=== PATIENT | female | born 1965 | race Caucasian/White ===

== ENCOUNTER 2018-07-11 15:26 | Inpatient (IN) | payer OTHER ==
[~2018-07-11] VITALS: Ht 167.6 cm; Wt 93.3 kg
[~2018-07-11 15:26] MED LIST: ALBU90I INH; AMLO5 PO; ATEN100; ATEN100 PO; ATOR20 PO; BENA20; BENA20 PO; CIME300; CIME300 PO; CIME400 PO; CLAR500 PO; CLIN300 PO; CYCL10 PO; EPIN.3I IM; HYDACE5 PO; ISOD40ER; ISOMON60ER PO; LISI20 PO; METR500 PO; NAPR500 PO; NITR.4SL SL; OMEP20ER PO; OMEPRAZOLE MAGN20 MG PO; PRED20 PO; QUIN325; SULTRIDS PO; VICODIN 5-3001 EACH PO; ZESTRIL40 MG PO
[2018-07-11 16:09] LABS: BASOPHILS ABSOLUTE AUTO 0.04 K/mm3 (0.00-0.23); BASOPHILS PERCENT AUTO 0 % (0-2); EOSINOPHILS PERCENT AUTO 0 % (0-6); Hematocrit 42.8 % (33.0-51.0); Hemoglobin 14.8 g/dL (11.5-16.0); IMMATURE GRAN ABSOLUTE AUTO 0.12 K/mm3 (0.00-0.10); IMMATURE GRAN PERCENT AUTO 1 % (0-1); LYMPHOCYTES ABSOLUTE AUTO 0.43 K/mm3 (0.84-5.20); LYMPHOCYTES PERCENT AUTO 2 % (21-46); MONOCYTES ABSOLUTE AUTO 0.61 K/mm3 (0.16-1.47); MONOCYTES PERCENT AUTO 3 % (4-13); Mean Corpuscular HGB 33.9 pg (26.0-34.0); Mean Corpuscular HGB Conc 34.6 g/dL (31.5-36.5); Mean Corpuscular Volume 98 fL (80-100); Mean Platelet Volume 9.6 fL (9.1-12.4); NEUTROPHILS ABSOLUTE AUTO 16.85 K/mm3 (1.96-9.15); NEUTROPHILS PERCENT AUTO 93 % (41-73); Platelet Count 254 K/mm3 (150-400); RDW Coefficient Variation 11.5 % (11.7-14.2); RDW Standard Deviation 42.1 fL (35.1-46.3); Red Blood Cell Count 4.36 M/mm3 (3.80-5.20); White Blood Cell Count 18.05 K/mm3 (4.00-11.30)
[2018-07-11 16:29] LABS: Alanine Aminotransfer (ALT/SGP 23 U/L (12-78); Albumin, Blood 3.8 g/dL (3.4-5.0); Albumin/Globulin Ratio 0.9 (0.8-1.8); Alk Phos 101 U/L (50-136); Anion Gap 8 mmol/L (6-16); Aspartate Aminotrans (AST/SGOT 14 U/L (12-37); Bilirubin, Total 0.8 mg/dL (0.1-1.0); Blood Urea Nitrogen 8 mg/dL (8-24); Bun/Creatinine Ratio 10.1 (12.0-20.0); CO2, Blood 26 mmol/L (21-32); Calcium, Blood 9.1 mg/dL (8.5-10.1); Chloride, Blood 95 mmol/L (98-108); Creatinine, Blood 0.79 mg/dL (0.40-1.00); Globulin, Blood 4.3 g/dL (2.2-4.0); Glomerular Filtration Rate >60 (60-); Glucose, Blood 128 mg/dL (70-99); Potassium, Blood 4.4 mmol/L (3.5-5.5); Sodium, Blood 129 mmol/L (136-145); Total Protein, Blood 8.1 g/dL (6.4-8.2)
[2018-07-11 17:26] LABS: Source, Urine Clean Catch
[2018-07-11 17:43] LABS: Appearance, Urine Clear (Clear); Bilirubin, Urine Neg (Neg); Blood, Urine Neg (Neg); Color, Urine Yellow (P-Yellow); Glucose Qualitative, Urine Neg (Neg); Ketones, Urine Neg (Neg); Leukocyte Esterase, Urine Neg (Neg); Nitrite, Urine Neg (Neg); Protein, Urine Neg (Neg); Specific Gravity, Urine 1.015 (1.003-1.022); Urobilinogen, Urine NORM (Normal)
--- NOTE | 2018-07-11 22:50 | NUR ---
PT GAVE CONSENT TO TAKE A PICTURE OF HER RIGHT LOWER LEG. REDNESS TO RIGHT LOWER EXTREMITY MARKED AND PICTURES TAKEN AND PLACED IN CHART.
--- NOTE | 2018-07-12 00:26 | NUR ---
07/11/18 2345 SECOND IV STARTED BY EMAIL DESIGNER, MARIAM, TO FACILITATE IV FLUIDS ORDERED. WILL MONITOR PAIN AND FEVER. CALL OSORIO WITHIN REACH.
[2018-07-12 04:59] LABS: Hemoglobin 11.8 g/dL (11.5-16.0); Mean Corpuscular HGB 33.5 pg (26.0-34.0); Mean Corpuscular HGB Conc 33.7 g/dL (31.5-36.5); Mean Corpuscular Volume 99 fL (80-100); Platelet Count 188 K/mm3 (150-400); RDW Coefficient Variation 11.9 % (11.7-14.2); RDW Standard Deviation 42.9 fL (35.1-46.3); Red Blood Cell Count 3.52 M/mm3 (3.80-5.20); White Blood Cell Count 10.61 K/mm3 (4.00-11.30)
[2018-07-12 05:24] LABS: Anion Gap 7 mmol/L (6-16); Blood Urea Nitrogen 8 mg/dL (8-24); Bun/Creatinine Ratio 9.9 (12.0-20.0); CO2, Blood 27 mmol/L (21-32); Calcium, Blood 7.9 mg/dL (8.5-10.1); Chloride, Blood 99 mmol/L (98-108); Creatinine, Blood 0.81 mg/dL (0.40-1.00); Glomerular Filtration Rate >60 (60-); Glucose, Blood 117 mg/dL (70-99); Potassium, Blood 3.7 mmol/L (3.5-5.5); Sodium, Blood 133 mmol/L (136-145)
--- NOTE | 2018-07-12 05:26 | NUR ---
07/12/18 0520 FEVER DOWN AND DENIES ANY PAIN AT PRESENT. CIWA AT 0. CPAP ON AT BEDTIME PER RESP CARE. CONTACT ISOLATION IN EFFECT UNTIL MRSA SWAB FROM [facility] REPORT RETURNS. UP VOIDING QS. RT LEG UNCHANGED FROM ADMIT.
--- NOTE | 2018-07-12 13:01 | NUR ---
This student nurse was given permission by the patient to access their medical information.
--- NOTE | 2018-07-12 18:42 | NUR ---
SHIFT SUMMARY. A&OX4, SBA TO BSC. RLE HOT TO TOUCH, PINK. PT CONTINUES TO BE FEBRILE, DR. CISNEROS ADDED IV ANCEF, TO BEGIN TONIGHT. FEVER AND PAIN TO RLE MANAGED WELL WITH APAP. NO SOB, N/V. PT REPORTS POOR APPETITE, BUT IS TAKING FLUIDS WELL. NO OTHER CHANGES.
[2018-07-13 04:58] LABS: BASOPHILS ABSOLUTE AUTO 0.04 K/mm3 (0.00-0.23); BASOPHILS PERCENT AUTO 0 % (0-2); EOSINOPHILS ABSOLUTE AUTO 0.01 K/mm3 (0.00-0.68); EOSINOPHILS PERCENT AUTO 0 % (0-6); Hematocrit 34.5 % (33.0-51.0); Hemoglobin 11.7 g/dL (11.5-16.0); IMMATURE GRAN ABSOLUTE AUTO 0.09 K/mm3 (0.00-0.10); IMMATURE GRAN PERCENT AUTO 1 % (0-1); LYMPHOCYTES ABSOLUTE AUTO 0.69 K/mm3 (0.84-5.20); LYMPHOCYTES PERCENT AUTO 6 % (21-46); MONOCYTES ABSOLUTE AUTO 0.38 K/mm3 (0.16-1.47); MONOCYTES PERCENT AUTO 3 % (4-13); Mean Corpuscular HGB 33.9 pg (26.0-34.0); Mean Corpuscular HGB Conc 33.9 g/dL (31.5-36.5); Mean Corpuscular Volume 100 fL (80-100); Mean Platelet Volume 9.7 fL (9.1-12.4); NEUTROPHILS ABSOLUTE AUTO 11.26 K/mm3 (1.96-9.15); NEUTROPHILS PERCENT AUTO 90 % (41-73); Platelet Count 172 K/mm3 (150-400); RDW Coefficient Variation 11.8 % (11.7-14.2); RDW Standard Deviation 43.2 fL (35.1-46.3); Red Blood Cell Count 3.45 M/mm3 (3.80-5.20); White Blood Cell Count 12.47 K/mm3 (4.00-11.30)
[2018-07-13 05:17] LABS: Anion Gap 9 mmol/L (6-16); Blood Urea Nitrogen 7 mg/dL (8-24); Bun/Creatinine Ratio 10.3 (12.0-20.0); CO2, Blood 24 mmol/L (21-32); Calcium, Blood 7.9 mg/dL (8.5-10.1); Chloride, Blood 100 mmol/L (98-108); Creatinine, Blood 0.68 mg/dL (0.40-1.00); Glomerular Filtration Rate >60 (60-); Glucose, Blood 130 mg/dL (70-99); Potassium, Blood 3.2 mmol/L (3.5-5.5); Sodium, Blood 133 mmol/L (136-145)
[2018-07-13 05:20] LABS: Vancomycin, Trough 9.4 ug/mL (5.0-10.0)
--- NOTE | 2018-07-13 07:19 | NUR ---
07/13/18 0630 BETTER NIGHT WITH NO PAIN AND LESS FEVERS. RT LEG WITH LESS REDNESS AND SWELLING. USES WALKER TO GET UP TO BSC HER RT LEG "CANNOT TOLERATE WEIGHT ON IT."
--- NOTE | 2018-07-13 18:21 | NUR ---
SHIFT SUMMARY PT HAS HAD NO COMPLAINTS THIS SHIFT. PT CONTINUES TO HAVE REDNESS, SWELLING, AND HOT TO TOUCH TO RLE. IVF INFUSING WITHOUT DIFFICULTY. PT WANTING TO GO HOME. NO SIGNS OF ETOH WITHDRAWAL NOTED THIS SHIFT. PT DID TAKE OWN MEDICATIONS THIS AM WHEN RN CAME IN TO DO AM MEDICATIONS. THIS RN EDUCATED PT ON IMPORTANCE AND SAFETY OF NOT TAKING OWN MEDICATIONS AND TAKING THE MEDICATIONS THAT THE PHSYICIAN HAS ORDERED. PT REPORTS UNDERSTANDING. NO ACUTE CHANGES THIS SHIFT. WILL CONTINUE TO MONITOR AND REPORT TO ONCOMING RN. CALL LIGHT IN REACH.
--- NOTE | 2018-07-14 05:02 | NUR ---
SHIFT SUMMARY: PT IS ALERT AND ORIENTED. PT IS CALM AND COOPERATIVE WITH CARE. PT CALLS APPROPRIATELY. PT IS INDEPENDENT IN THE ROOM. PT SLEPT MUCH OF THE NIGHT WHEN NOT DISTURBED. BANANA BAG RUNNING ORDERED. PT WORE CPAP OVERNIGHT. PT DENIES PAIN, NAUSEA, VOMITING, AND SOB. NO ACUTE CHANGES OR COMPLICATIONS THIS SHIFT. BED IN LOW POSITION, CALL LIGHT WITHIN REACH. WILL REPORT TO DAY NURSE.
[2018-07-14 05:21] LABS: BASOPHILS ABSOLUTE AUTO 0.04 K/mm3 (0.00-0.23); BASOPHILS PERCENT AUTO 1 % (0-2); EOSINOPHILS ABSOLUTE AUTO 0.08 K/mm3 (0.00-0.68); EOSINOPHILS PERCENT AUTO 1 % (0-6); Hematocrit 35.6 % (33.0-51.0); Hemoglobin 11.6 g/dL (11.5-16.0); IMMATURE GRAN ABSOLUTE AUTO 0.03 K/mm3 (0.00-0.10); IMMATURE GRAN PERCENT AUTO 0 % (0-1); LYMPHOCYTES ABSOLUTE AUTO 0.98 K/mm3 (0.84-5.20); LYMPHOCYTES PERCENT AUTO 13 % (21-46); MONOCYTES ABSOLUTE AUTO 0.54 K/mm3 (0.16-1.47); MONOCYTES PERCENT AUTO 7 % (4-13); Mean Corpuscular HGB 33.1 pg (26.0-34.0); Mean Corpuscular HGB Conc 32.6 g/dL (31.5-36.5); Mean Corpuscular Volume 102 fL (80-100); Mean Platelet Volume 9.8 fL (9.1-12.4); NEUTROPHILS PERCENT AUTO 79 % (41-73); Platelet Count 186 K/mm3 (150-400); RDW Coefficient Variation 11.9 % (11.7-14.2); RDW Standard Deviation 44.2 fL (35.1-46.3); White Blood Cell Count 7.87 K/mm3 (4.00-11.30)
--- NOTE | 2018-07-14 14:29 | NUR ---
Met with patient regarding POLST and advance directives. She has been offered those documents before and she has opted to NOT fill them out. She does not want to review them or interventions.
[2018-07-14 14:36] LABS: BASOPHILS ABSOLUTE AUTO 0.05 K/mm3 (0.00-0.23); BASOPHILS PERCENT AUTO 1 % (0-2); EOSINOPHILS ABSOLUTE AUTO 0.11 K/mm3 (0.00-0.68); EOSINOPHILS PERCENT AUTO 1 % (0-6); Hematocrit 35.8 % (33.0-51.0); Hemoglobin 11.8 g/dL (11.5-16.0); IMMATURE GRAN ABSOLUTE AUTO 0.04 K/mm3 (0.00-0.10); IMMATURE GRAN PERCENT AUTO 1 % (0-1); LYMPHOCYTES ABSOLUTE AUTO 0.78 K/mm3 (0.84-5.20); LYMPHOCYTES PERCENT AUTO 10 % (21-46); MONOCYTES ABSOLUTE AUTO 0.62 K/mm3 (0.16-1.47); MONOCYTES PERCENT AUTO 8 % (4-13); Mean Corpuscular HGB 33.3 pg (26.0-34.0); Mean Corpuscular Volume 101 fL (80-100); Mean Platelet Volume 9.4 fL (9.1-12.4); NEUTROPHILS ABSOLUTE AUTO 6.59 K/mm3 (1.96-9.15); NEUTROPHILS PERCENT AUTO 81 % (41-73); Platelet Count 207 K/mm3 (150-400); RDW Coefficient Variation 11.9 % (11.7-14.2); RDW Standard Deviation 44.6 fL (35.1-46.3); Red Blood Cell Count 3.54 M/mm3 (3.80-5.20); White Blood Cell Count 8.19 K/mm3 (4.00-11.30)
[2018-07-14 15:57] LABS: Vancomycin, Trough 20.5 ug/mL (5.0-10.0)
--- NOTE | 2018-07-14 19:11 | NUR ---
SHIFT SUMMARY PT HAD A TEMPERATURE THIS AFTERNOON AND TYLENOL GIVEN. TEMP DOWN TO 100.5. PT UP AND TOOK SHOWER THIS AFTERNOON. RLE CONTINUES TO BE RED AND WARM TO TOUCH. PT HAS HAD NO COMPLAINTS OR REQUESTS THIS SHIFT. NO ACUTE CHANGES. PT CONTINUES TO GET IV ANTIBIOTICS. REPORT GIVEN TO MARLY LOUIS. CALL LIGHT IN REACH.
[2018-07-15 04:57] LABS: BASOPHILS ABSOLUTE AUTO 0.05 K/mm3 (0.00-0.23); BASOPHILS PERCENT AUTO 1 % (0-2); EOSINOPHILS PERCENT AUTO 1 % (0-6); Hematocrit 33.8 % (33.0-51.0); Hemoglobin 11.3 g/dL (11.5-16.0); IMMATURE GRAN ABSOLUTE AUTO 0.05 K/mm3 (0.00-0.10); IMMATURE GRAN PERCENT AUTO 1 % (0-1); LYMPHOCYTES ABSOLUTE AUTO 0.87 K/mm3 (0.84-5.20); LYMPHOCYTES PERCENT AUTO 10 % (21-46); MONOCYTES ABSOLUTE AUTO 0.77 K/mm3 (0.16-1.47); MONOCYTES PERCENT AUTO 9 % (4-13); Mean Corpuscular HGB 32.7 pg (26.0-34.0); Mean Corpuscular HGB Conc 33.4 g/dL (31.5-36.5); Mean Corpuscular Volume 98 fL (80-100); Mean Platelet Volume 9.7 fL (9.1-12.4); NEUTROPHILS ABSOLUTE AUTO 6.62 K/mm3 (1.96-9.15); NEUTROPHILS PERCENT AUTO 78 % (41-73); Platelet Count 229 K/mm3 (150-400); RDW Coefficient Variation 11.9 % (11.7-14.2); RDW Standard Deviation 42.5 fL (35.1-46.3); Red Blood Cell Count 3.46 M/mm3 (3.80-5.20); White Blood Cell Count 8.46 K/mm3 (4.00-11.30)
--- NOTE | 2018-07-15 05:33 | NUR ---
SHIFT SUMMARY: PT IS ALERT AND ORIENTED. PT IS CALM AND COOPERATIVE WITH CARE. PT CALLS APPROPRIATELY. PT IS UP INDEPENDENTLY TO THE BSC. PT SLEPT MUCH OF THE NIGHT WHEN NOT DISTURBED. PT DENIES PAIN, NAUSEA, VOMITING, AND SOB. NO ACUTE CHANGES OR COMPLICATIONS THIS SHIFT. BED IN LOW POSITION, CALL LIGHT WITHIN REACH. WILL REPORT TO DAY NURSE.
--- NOTE | 2018-07-15 17:51 | NUR ---
SUMMARY PT SITTING UP IN BED, HAS BEEN PLEASANT AND COOPERATIVE WITH CARE T/O THE DAY, PT REPORTED REDNESS TO R LEG WORSE, AREA MARKED, DR MENDOSATRATE NOTIFIED, ANTIBIOTICS CHANGED, FAMILY HAS BEEN IN TO SEE THE PT, VSS, NO ACUTE CHANGES, WILL CONT TO MONITOR
[2018-07-15 20:16] LABS: Vancomycin, Trough 11.7 ug/mL (5.0-10.0)
[2018-07-16 05:01] LABS: BASOPHILS ABSOLUTE AUTO 0.06 K/mm3 (0.00-0.23); BASOPHILS PERCENT AUTO 1 % (0-2); EOSINOPHILS ABSOLUTE AUTO 0.19 K/mm3 (0.00-0.68); EOSINOPHILS PERCENT AUTO 2 % (0-6); Hematocrit 34.3 % (33.0-51.0); Hemoglobin 11.3 g/dL (11.5-16.0); IMMATURE GRAN ABSOLUTE AUTO 0.05 K/mm3 (0.00-0.10); IMMATURE GRAN PERCENT AUTO 1 % (0-1); LYMPHOCYTES ABSOLUTE AUTO 1.29 K/mm3 (0.84-5.20); LYMPHOCYTES PERCENT AUTO 14 % (21-46); MONOCYTES ABSOLUTE AUTO 0.82 K/mm3 (0.16-1.47); MONOCYTES PERCENT AUTO 9 % (4-13); Mean Corpuscular HGB 32.7 pg (26.0-34.0); Mean Corpuscular HGB Conc 32.9 g/dL (31.5-36.5); Mean Corpuscular Volume 99 fL (80-100); NEUTROPHILS ABSOLUTE AUTO 6.82 K/mm3 (1.96-9.15); NEUTROPHILS PERCENT AUTO 74 % (41-73); Platelet Count 260 K/mm3 (150-400); RDW Coefficient Variation 11.9 % (11.7-14.2); RDW Standard Deviation 43.5 fL (35.1-46.3); Red Blood Cell Count 3.46 M/mm3 (3.80-5.20); White Blood Cell Count 9.23 K/mm3 (4.00-11.30)
[2018-07-16 05:22] LABS: Alanine Aminotransfer (ALT/SGP 29 U/L (12-78); Albumin, Blood 2.4 g/dL (3.4-5.0); Albumin/Globulin Ratio 0.6 (0.8-1.8); Alk Phos 103 U/L (50-136); Anion Gap 6 mmol/L (6-16); Aspartate Aminotrans (AST/SGOT 19 U/L (12-37); Bilirubin, Total 0.4 mg/dL (0.1-1.0); Blood Urea Nitrogen 8 mg/dL (8-24); Bun/Creatinine Ratio 12.3 (12.0-20.0); CO2, Blood 29 mmol/L (21-32); Calcium, Blood 8.4 mg/dL (8.5-10.1); Chloride, Blood 103 mmol/L (98-108); Creatinine, Blood 0.65 mg/dL (0.40-1.00); Globulin, Blood 4.2 g/dL (2.2-4.0); Glomerular Filtration Rate >60 (60-); Glucose, Blood 92 mg/dL (70-99); Potassium, Blood 3.6 mmol/L (3.5-5.5); Sodium, Blood 138 mmol/L (136-145); Total Protein, Blood 6.6 g/dL (6.4-8.2)
--- NOTE | 2018-07-16 06:07 | NUR ---
pt with diabetes and reoccurring rt le cellulitis continues on vanco and other iv antibiotics. Continues with rt le scalded blistered, red hot swollen. medicated with tylenol and ultram 50 mg for rt le pain with helpful effect. pt had been refusing to elevate rt le abouve heart level but helped pt understand and posiitioned rt le to decrease edema. skin care with calmaseptic done with helpful effect for pain control.
--- NOTE | 2018-07-16 18:55 | NUR ---
PT. LYING IN BED READING A BOOK. DENIES PAIN OR NAUSEA AT THIS TIME. PT'S IV IN RIGHT WRIST INFILTRATED FIRST THING THIS MORNING. DOMENICA GARCIA CHARGE NURSE STARTED A NEW IV IN PT'S LEFT UPPER ARM. IV IS PATENT AND FLUSHING WELL. NO NOTEABLE CHANGES THIS SHIFT.
[2018-07-17 05:28] LABS: BASOPHILS ABSOLUTE AUTO 0.02 K/mm3 (0.00-0.23); BASOPHILS PERCENT AUTO 0 % (0-2); EOSINOPHILS PERCENT AUTO 0 % (0-6); Hematocrit 37.6 % (33.0-51.0); Hemoglobin 12.4 g/dL (11.5-16.0); IMMATURE GRAN ABSOLUTE AUTO 0.04 K/mm3 (0.00-0.10); IMMATURE GRAN PERCENT AUTO 1 % (0-1); LYMPHOCYTES ABSOLUTE AUTO 0.69 K/mm3 (0.84-5.20); LYMPHOCYTES PERCENT AUTO 8 % (21-46); MONOCYTES ABSOLUTE AUTO 0.15 K/mm3 (0.16-1.47); MONOCYTES PERCENT AUTO 2 % (4-13); Mean Corpuscular HGB 32.2 pg (26.0-34.0); Mean Corpuscular Volume 98 fL (80-100); Mean Platelet Volume 9.8 fL (9.1-12.4); NEUTROPHILS ABSOLUTE AUTO 7.78 K/mm3 (1.96-9.15); NEUTROPHILS PERCENT AUTO 90 % (41-73); Platelet Count 332 K/mm3 (150-400); RDW Coefficient Variation 11.6 % (11.7-14.2); RDW Standard Deviation 41.5 fL (35.1-46.3); Red Blood Cell Count 3.85 M/mm3 (3.80-5.20); White Blood Cell Count 8.68 K/mm3 (4.00-11.30)
[2018-07-17 05:58] LABS: Anion Gap 7 mmol/L (6-16); Blood Urea Nitrogen 12 mg/dL (8-24); Bun/Creatinine Ratio 21.2 (12.0-20.0); CO2, Blood 28 mmol/L (21-32); Calcium, Blood 8.9 mg/dL (8.5-10.1); Chloride, Blood 102 mmol/L (98-108); Creatinine, Blood 0.57 mg/dL (0.40-1.00); Glomerular Filtration Rate >60 (60-); Glucose, Blood 195 mg/dL (70-99); Sodium, Blood 137 mmol/L (136-145)
--- NOTE | 2018-07-17 06:07 | NUR ---
53 YEAR OLD FEMALE WITH RT LE CELLULITIS SHOWED GOOD IMPROVEMENT IN EDEMA REDNESS WARMTH DURING NIGHT ON IV STEROIDS. HER BLOOD GLUCOSE WAS ELEVATED AND SHE RECIEVED 4 UNITS SLIDING SCALE INSULIN. NO S/SX OF ETOH WITHDRAWL. PT DISCUSSED PLAN TO CONTINUE WITH ETOH AND SMOKING CESSATION. ENCOURAGED CESSATION EFFORTS. PT DISCUSSED PLAN AND SUPPORT OFFERED. DIABETIC NAIL CARE GIVEN BILAT FEET WITH THIS RN CUTTING THICK HORNY TOENAILS AND FOOT CARE GIVEN. PT PLANS TO DC HOME DAPHNIE.
[2018-07-17] MEDS ORDERED: PRED10 PO ×2 (11:35→11:44)
--- NOTE | 2018-07-17 12:40 | NUR ---
PT. DISCHARGED HOME WITH SPOUSE. RLE SWELLING GREATLY DECREASED AND AREA DRYING UP. PT. INSTRUCTED TO TAKE ALL OF PREDNISONE.
== END 2018-07-17 12:44 | disposition home or self-care (01) | DRG 607 ==
LOC: ER 15:26 → MEDS 18:32 → ENPENDDIS 07-17 11:00 → MEDS 07-17 12:44
PROVIDERS: Emergency Medicine; Hospitalist; Nurse Practitioner Acute Care; Pharmacist; ADMIT Family Medicine
DX: L23.7 Allergic contact dermatitis due to plants, except food (principal); R65.10 Systemic inflammatory response syndrome (SIRS) of non-infectious origin without acute organ dysfunction; E87.1 Hypo-osmolality and hyponatremia; E87.8 Other disorders of electrolyte and fluid balance, not elsewhere classified; E11.9 Type 2 diabetes mellitus without complications; E86.0 Dehydration; F10.20 Alcohol dependence, uncomplicated; E66.9 Obesity, unspecified; G47.33 Obstructive sleep apnea (adult) (pediatric); J44.9 Chronic obstructive pulmonary disease, unspecified; I10 Essential (primary) hypertension; K21.9 Gastro-esophageal reflux disease without esophagitis; F17.210 Nicotine dependence, cigarettes, uncomplicated; Z86.73 Personal history of transient ischemic attack (TIA), and cerebral infarction without residual deficits; Z86.14 Personal history of Methicillin resistant Staphylococcus aureus infection; Z85.41 Personal history of malignant neoplasm of cervix uteri; Z79.899 Other long term (current) drug therapy; Z88.5 Allergy status to narcotic agent; Z88.0 Allergy status to penicillin; Z68.31 Body mass index [BMI] 31.0-31.9, adult; Z28.20 Immunization not carried out because of patient decision for unspecified reason
CPT/HCPCS: 36415; 80048; 80053; 80202; 81003; 82565; 82947; 83605; 83690; 83735; 84100; 84132; 85025; 85027; 87040; 90686; 93971; 94660; 94760; 94762; 96361; 96365; 96375; 99284-25; J0690; J0692; J0696; J1650; J2405; J2920; J3370; J3475; J7030; J7042; J7050; J7120

== ENCOUNTER 2018-07-22 10:26 | Emergency (ER) | payer OTHER ==
[~2018-07-22] VITALS: Ht 167.6 cm; Wt 90.7 kg
[~2018-07-22 10:26] MED LIST changes: +PRED10 PO
== END 2018-07-22 12:15 | disposition home or self-care (01) ==
LOC: ER 10:26
DX: L25.9 Unspecified contact dermatitis, unspecified cause (principal); I10 Essential (primary) hypertension; E11.9 Type 2 diabetes mellitus without complications; F17.200 Nicotine dependence, unspecified, uncomplicated; Z88.0 Allergy status to penicillin; Z88.5 Allergy status to narcotic agent; Z91.018 Allergy to other foods; Z79.899 Other long term (current) drug therapy
CPT/HCPCS: 82947; 99283

== ENCOUNTER → 2021-04-16 | Outpatient (CLI) | payer OTHER ==
[2021-04-16 19:09] LABS: BASOPHILS ABSOLUTE AUTO 0.05 K/mm3 (0.00-0.23); BASOPHILS PERCENT AUTO 1 % (0-2); EOSINOPHILS ABSOLUTE AUTO 0.21 K/mm3 (0.00-0.68); EOSINOPHILS PERCENT AUTO 3 % (0-6); Hematocrit 41.1 % (33.0-51.0); Hemoglobin 14.5 g/dL (11.5-16.0); IMMATURE GRAN ABSOLUTE AUTO 0.02 K/mm3 (0.00-0.10); IMMATURE GRAN PERCENT AUTO 0 % (0-1); LYMPHOCYTES ABSOLUTE AUTO 1.53 K/mm3 (0.84-5.20); LYMPHOCYTES PERCENT AUTO 24 % (21-46); MONOCYTES ABSOLUTE AUTO 0.57 K/mm3 (0.16-1.47); MONOCYTES PERCENT AUTO 9 % (4-13); Mean Corpuscular HGB 32.2 pg (26.0-34.0); Mean Corpuscular HGB Conc 35.3 g/dL (31.5-36.5); Mean Corpuscular Volume 91 fL (80-100); Mean Platelet Volume 10.6 fL (9.1-12.4); NEUTROPHILS ABSOLUTE AUTO 3.99 K/mm3 (1.96-9.15); NEUTROPHILS PERCENT AUTO 63 % (41-73); Platelet Count 258 K/mm3 (150-400); RDW Coefficient Variation 11.6 % (11.7-14.2); RDW Standard Deviation 38.6 fL (35.1-46.3); Red Blood Cell Count 4.51 M/mm3 (3.80-5.20); White Blood Cell Count 6.37 K/mm3 (4.00-11.30)
[2021-04-16 20:25] LABS: Alanine Aminotransfer (ALT/SGP 26 U/L (12-78); Albumin, Blood 3.7 g/dL (3.4-5.0); Albumin/Globulin Ratio 0.9 (0.8-1.8); Alk Phos 127 U/L (50-136); Anion Gap 5 mmol/L (6-16); Aspartate Aminotrans (AST/SGOT 21 U/L (12-37); Bilirubin, Total 0.4 mg/dL (0.1-1.0); Blood Urea Nitrogen 12 mg/dL (8-24); Bun/Creatinine Ratio 15.9 (12.0-20.0); CO2, Blood 29 mmol/L (21-32); Calcium, Blood 9.4 mg/dL (8.5-10.1); Chloride, Blood 89 mmol/L (98-108); Creatinine, Blood 0.76 mg/dL (0.40-1.00); Globulin, Blood 4.3 g/dL (2.2-4.0); Glomerular Filtration Rate >60 (60-); Glucose, Blood 105 mg/dL (70-99); Potassium, Blood 4.3 mmol/L (3.5-5.5); Sodium, Blood 123 mmol/L (136-145)
== END ==
LOC: LAB 16:23 → LAB SHORT 16:23
PROVIDERS: Family Medicine
DX: E11.9 Type 2 diabetes mellitus without complications (principal); I10 Essential (primary) hypertension
CPT/HCPCS: 36415; 80053; 83036; 85025

== ENCOUNTER 2022-06-01 01:14 | Inpatient (IN) | payer OTHER ==
[~2022-06-01] VITALS: Ht 170.2 cm; Wt 122.2 kg
[2022-06-01 01:48] LABS: BASOPHILS ABSOLUTE AUTO 0.04 K/mm3 (0.00-0.23); BASOPHILS PERCENT AUTO 1 % (0-2); EOSINOPHILS ABSOLUTE AUTO 0.28 K/mm3 (0.00-0.68); EOSINOPHILS PERCENT AUTO 5 % (0-6); Hematocrit 32.9 % (33.0-51.0); Hemoglobin 11.6 g/dL (11.5-16.0); IMMATURE GRAN ABSOLUTE AUTO 0.01 K/mm3 (0.00-0.10); IMMATURE GRAN PERCENT AUTO 0 % (0-1); LYMPHOCYTES ABSOLUTE AUTO 2.16 K/mm3 (0.84-5.20); LYMPHOCYTES PERCENT AUTO 37 % (21-46); MONOCYTES ABSOLUTE AUTO 0.45 K/mm3 (0.16-1.47); MONOCYTES PERCENT AUTO 8 % (4-13); Mean Corpuscular HGB 32.7 pg (26.0-34.0); Mean Corpuscular HGB Conc 35.3 g/dL (31.5-36.5); Mean Corpuscular Volume 93 fL (80-100); Mean Platelet Volume 10.2 fL (9.1-12.4); NEUTROPHILS ABSOLUTE AUTO 2.86 K/mm3 (1.96-9.15); NEUTROPHILS PERCENT AUTO 49 % (41-73); Platelet Count 223 K/mm3 (150-400); RDW Coefficient Variation 11.8 % (11.7-14.2); RDW Standard Deviation 40.5 fL (35.1-46.3); Red Blood Cell Count 3.55 M/mm3 (3.80-5.20)
[2022-06-01 02:00] LABS: Albumin, Blood 3.3 g/dL (3.4-5.0); Albumin/Globulin Ratio 0.8 (0.8-1.8); Bilirubin, Total 0.2 mg/dL (0.1-1.0); Bun/Creatinine Ratio 21.8 (12.0-20.0); Calcium, Blood 8.2 mg/dL (8.5-10.1); Creatinine, Blood 0.73 mg/dL (0.40-1.00); Globulin, Blood 4.3 g/dL (2.2-4.0); Potassium, Blood 3.5 mmol/L (3.5-5.5); Total Protein, Blood 7.6 g/dL (6.4-8.2)
[2022-06-01] MEDS ORDERED: BUPROPION XL150 M1 PO (03:16)
[2022-06-01] MEDS ORDERED: ALDACTONE25 MG PO (03:17)
[2022-06-01] MEDS ORDERED: METFORMIN HCL500 M3 PO (03:17)
--- NOTE | 2022-06-01 07:44 | NUR ---
Shift Summary Pt alert, oriented x4, calm and cooperative with care. Pt on bedrest, fracture to rle, splinted and wrapped, unable to assess leg, cap refil in toes wnl. Pt report burning shooting pain to rle intermittently and headache 1/10, denies need for intervention at this time. Pt denies chest pain/pressure, sob, nausea, dizziness and numb/tingling. Spo2 >90% on ra, breahting even and unlabored at rest. Abs mild distended, firm, nontender, with hypoactive bt. Tele sinus traci 40-60's, occasionally dropping to 30's asymptomatic, bp elevated medicated per emar. Ciwa of 1 this am. Afebrile, other vss. No other acute changes noted. Pt remains npo for possible procedure today. Will continue to monitor.
--- NOTE | 2022-06-01 14:45 | NUR ---
Patient to day surgery for procedure.
--- NOTE | 2022-06-01 15:03 | NUR ---
PT RECENTLY TO [facility] BY BED WITH OTHER RN ASSIST. Patient confirms NPO status and agrees with scheduled surgery. History, Chart, Medications and Allergies reviewed before start of procedure. LUNGS WITH SLIGHT EXPIRATORY WHEEZE, WILL DISCUSS WITH ANESTHESIA. Pre-Op teaching done. Pt verbalizes understanding.
--- NOTE | 2022-06-01 15:42 | NUR ---
DISCUSSED PT'S SLIGHT WHEEZE WITH ANESTHESIA, NO NEW ORDERS AT THIS TIME.
--- NOTE | 2022-06-01 18:43 | NUR ---
Shift Summary Pt back to room at approx 1830. Pt alert, oriented x4; calm and cooperative with care. Pt reporting increased pain to rle, will medicate per emar. Cardiac per Dr Adams. Vss. [place] replaced. No other acute changes noted. Will continue to monitor until report given to oncoming rn.
--- NOTE | 2022-06-02 03:29 | NUR ---
PT WITHOUT ANY SIGNIFICANT CHANGES OR EVENTS TONIGHT. PAIN PRNS ADDED TO MAR, SEE CHART. TORODOL BEING MORE EFFECTIVE TO CONTROL PTS PAIN. ALTERNATING PAIN PRNS TO KEEP PTS PAIN UNDER CONTROL. VSS. X1 OF PRN HYDRALAZINE GIVEN. HRS REMAIN LOU 30-60S. NOT SUSTAINING IN THE 30S. PT SLEEPING WITH HOME BIPAP.
[2022-06-02 03:30] LABS: BASOPHILS ABSOLUTE AUTO 0.02 K/mm3 (0.00-0.23); BASOPHILS PERCENT AUTO 0 % (0-2); EOSINOPHILS ABSOLUTE AUTO 0.03 K/mm3 (0.00-0.68); EOSINOPHILS PERCENT AUTO 1 % (0-6); Hematocrit 29.7 % (33.0-51.0); Hemoglobin 10.4 g/dL (11.5-16.0); IMMATURE GRAN ABSOLUTE AUTO 0.01 K/mm3 (0.00-0.10); IMMATURE GRAN PERCENT AUTO 0 % (0-1); LYMPHOCYTES ABSOLUTE AUTO 0.95 K/mm3 (0.84-5.20); LYMPHOCYTES PERCENT AUTO 15 % (21-46); MONOCYTES ABSOLUTE AUTO 0.65 K/mm3 (0.16-1.47); MONOCYTES PERCENT AUTO 10 % (4-13); Mean Corpuscular HGB 32.5 pg (26.0-34.0); Mean Corpuscular Volume 93 fL (80-100); Mean Platelet Volume 10.1 fL (9.1-12.4); NEUTROPHILS ABSOLUTE AUTO 4.62 K/mm3 (1.96-9.15); NEUTROPHILS PERCENT AUTO 74 % (41-73); Platelet Count 203 K/mm3 (150-400); RDW Coefficient Variation 12.2 % (11.7-14.2); White Blood Cell Count 6.28 K/mm3 (4.00-11.30)
[2022-06-02 04:22] LABS: Albumin/Globulin Ratio 0.8 (0.8-1.8); Bilirubin, Total 0.5 mg/dL (0.1-1.0); Bun/Creatinine Ratio 23.6 (12.0-20.0); Calcium, Blood 8.5 mg/dL (8.5-10.1); Creatinine, Blood 0.93 mg/dL (0.40-1.00); Potassium, Blood 4.4 mmol/L (3.5-5.5)
--- NOTE | 2022-06-02 09:29 | NUR ---
[place] of Care: Care assumed at 0700hr. Patient alert and oriented x4, pleasant and cooperative with staff. VSS, spO2 98-100% on RA. Heart rhythm shows sinus in the 60's, BP stable. C/o pain to rt ankle surgery site, effectively managed with x1 prn dose of fentanyl this morning. Plan to speak with hospitalist staff r/t adding PO pain medication control. Tolerated small amount of breakfast without difficulty, denies N/V. Brian and Mariano wrap in place to rt ankle/calf. Distal toes warmth, cap refill, color, and sensation all wnl. Plan for patient to work with PT/OT today r/t non-weight bearing status to rt leg. Call light in reach, makes needs known. Will continue to monitor.
[2022-06-02] MEDS ORDERED: TRAM50 PO (14:06)
--- NOTE | 2022-06-02 15:29 | NUR ---
TOOK OVER CARE OF PATIENT AT 1445, SHE HAD RECEIVED DC ORDERS FROM . SOME QUESTIONS ASKED OF AND ANSWERED. [facility] REC SENT TO ELISA PER PATIENT REQUEST. SPOKE WITH [facility] ABOUT PT'S WHEELCHAIR, HANDED A SCRIPT TO PATIENT WHICH SHE HANDED TO HER DAUGHTER FOR TRAMADOL. PT'S IV RE- MOVED, INTACT AND DRESSED WITH COBAN. PT DRESSED AND AWAITING HER RIDE. DIS- CHARGE ORDERS GIVEN TO PATIENT, VERBALLY AND WRITTEN FORM. PT WHEELED OUT TO CAR BY CPT. UPON CLEANING PT ROOM IT WAS FOUND TO HAVE THE ALCOHOL AND DRUG TREATMENT HANDOUT LEFT.
== END 2022-06-02 15:15 | disposition home or self-care (01) | DRG 493 ==
LOC: ER 01:14 → ICUW 01:15 → ICUE 01:15 → ICUW 03:02 → ER 03:02 → ICUE 04:40
PROVIDERS: Emergency Medicine; Podiatrist Foot & Ankle Surgery; ADMIT Internal Medicine
PROC: 0QSJ04Z Reposition Right Fibula with Internal Fixation Device, Open Approach (ICD-10-PCS; 2022-06-01)
PROC: 3E02340 Introduction of Influenza Vaccine into Muscle, Percutaneous Approach (ICD-10-PCS; 2022-06-01)
PROC: 0QSG04Z Reposition Right Tibia with Internal Fixation Device, Open Approach (ICD-10-PCS; principal; 2022-06-01 15:30)
DX: S82.851B Displaced trimalleolar fracture of right lower leg, initial encounter for open fracture type I or II (principal); E87.1 Hypo-osmolality and hyponatremia; I10 Essential (primary) hypertension; E11.9 Type 2 diabetes mellitus without complications; J44.9 Chronic obstructive pulmonary disease, unspecified; I49.1 Atrial premature depolarization; K21.9 Gastro-esophageal reflux disease without esophagitis; G47.33 Obstructive sleep apnea (adult) (pediatric); F10.229 Alcohol dependence with intoxication, unspecified; E03.9 Hypothyroidism, unspecified; W18.30XA Fall on same level, unspecified, initial encounter; Z96.612 Presence of left artificial shoulder joint; Z88.0 Allergy status to penicillin; Z23 Encounter for immunization; Z88.5 Allergy status to narcotic agent; Z91.018 Allergy to other foods; Z79.899 Other long term (current) drug therapy; Z79.52 Long term (current) use of systemic steroids; Z79.811 Long term (current) use of aromatase inhibitors; Z86.73 Personal history of transient ischemic attack (TIA), and cerebral infarction without residual deficits; Z99.81 Dependence on supplemental oxygen; Z86.14 Personal history of Methicillin resistant Staphylococcus aureus infection; Z87.2 Personal history of diseases of the skin and subcutaneous tissue; Z85.41 Personal history of malignant neoplasm of cervix uteri; Z90.710 Acquired absence of both cervix and uterus; Z98.890 Other specified postprocedural states; Z87.891 Personal history of nicotine dependence; Z71.41 Alcohol abuse counseling and surveillance of alcoholic
CPT/HCPCS: 12001; 27810; 36415; 73600; 73610; 73700; 80053; 82947; 83735; 85025; 86850; 86900; 86901; 90471; 90686; 90714; 93005; 93010; 94660; 96374-59; 96375-59; 97110; 97116; 97162; 99285-25; A9270; C1713; C1769; G0480; J0360; J0690; J1100; J1885; J2405; J2704; J2795; J3010; J3411; J7030; J7120